=== PATIENT | male | born 1985 | race Caucasian/White ===

== ENCOUNTER 2017-11-10 12:57 | Emergency (ER) | payer SELFPAY ==
[~2017-11-10 12:57] MED LIST: CEPH500C24 PO; CYCL10TA29 PO; HYDR-4309 PO
--- NOTE | 2017-11-10 12:58 | ER Report ---
History and Physical Time Seen By MD: 12:58 HPI/ROS CHIEF COMPLAINT: Back pain HISTORY OF PRESENT ILLNESS: Patient is a 32-year-old male who states he was helping a friend move a refrigerator off the truck bed yesterday when he got his left foot caught in the tailgate. This caused him to twist landing with his right knee on the ground and pulling his right lower back. It is been trying to medicate with Tylenol and Motrin without significant relief. He has significant pain with movement better at rest. He denies any fevers or chills. Denies any saddle anesthesia. Denies any retention or incontinence of urine or stool. Complains of some right knee pain. Patient is able to ambulate with difficulty secondary to pain REVIEW OF SYSTEMS: Respiratory: No cough, no dyspnea. Cardiovascular: No chest pain, no palpitations. Gastrointestinal: No vomiting, no abdominal pain. Musculoskeletal: Right lower back pain Allergies: Coded Allergies: No Known Drug Allergies (Unverified , 08/07/15) Home Meds Active Scripts Methocarbamol (ROBAXIN) 500 Mg Tablet, 1500 MG PO TID for Muscle Relaxant, #30 TAB 0 Refills Prov:JOE NIEVES MD 11/10/17 Hydrocodone Bit/Acetaminophen (HYDROCODON-ACETAMINOPHEN 5-325) 1 Each Tablet, 1 EACH PO Q4-6H PRN for PAIN, #12 TAB 0 Refills TAKE ONE TABLET BY MOUTH EVERY 4-6 HOURS NEEDED FOR PAIN Prov:JOE NIEVES MD 11/10/17 Hydrocodone Bit/Acetaminophen (NORCO 5-325 TABLET) 1 Each Tablet, 1 EACH PO Q4- 6H PRN for PAIN, #20 TAB Prov:NEHA BOWMAN 08/07/15 Cyclobenzaprine Hcl (CYCLOBENZAPRINE HCL) 10 Mg Tablet, 5-10 MG PO TID PRN for MUSCLE SPASMS, #30 TAB Prov:NEHA BOWMAN 08/07/15 Past Medical/Surgical History Noncontributory towards his chief complaint Hx Smoking: Yes (1/2 ppd) Smoking Status: Current: Every Day Smoker Hx Substance Use Disorder: No Hx Alcohol Use: Yes (rare) Constitutional Vital Sign - Last 24 Hours 11/10/17 11/10/17 11/10/17 11/10/17 13:00 13:02 13:12 13:27 Temp 98.6 Pulse 74 73 68 Resp 20 B/P (MAP) 123/72 123/72 (89) Pulse Ox 96 98 99 O2 Delivery Room Air 11/10/17 11/10/17 11/10/17 11/10/17 13:30 13:42 13:57 14:02 Pulse 72 67 B/P (MAP) 114/71 (85) 113/71 (85) Pulse Ox 95 97 Physical Exam General appearance: alert no distress. Back: Thoracic spine has no spinal or paraspinal tenderness to palpation. Lumbar spine has no spinal tenderness moderateparaspinal tenderness on the right Gastroinal: Abdomen is soft, non tender, no masses.. Skin: No lesions and no rashes. Vascular: Normal capillary refill and pulses to feet. Neurological: Motor function: leg strength normal and symmetric for both legs Sensory function: normal for all leg dermatomes. Straight leg raise negative to 70 degrees. Reflexes normal bilaterally on legs. Musculoskeletal: Swelling to the right knee without erythema normal range of motion DIFFERENTIAL DIAGNOSIS: After history and physical exam differential diagnosis was considered for back pain including muscular strain, herniated disc, intra- abdominal and renal causes. He sprain, fracture, ligamentous injury Medical Decision Making EKG/Imaging Imaging X-ray knee negative for acute fracture, x-ray of lumbar spine negative for acute fracture ED Course/Re-evaluation ED Course X-rays negative for acute fracture or injury. Plan will be symptomatic treatment at home with follow-up with primary care provider Decision to Disposition Date: Nov 10, 2017 Decision to Disposition Time: 13:51 Depart Departure Latest Vital Signs Vital Signs Date Time Temp Pulse Resp B/P (MAP) Pulse Ox O2 Delivery O2 Flow Rate FiO2 11/10/17 14:02 113/71 (85) 11/10/17 13:57 67 97 11/10/17 13:00 98.6 20 Room Air Impression: Primary Impression: Low back strain Condition: Improved Disposition: HOME OR SELF-CARE New Scripts Methocarbamol (ROBAXIN) 500 Mg Tablet 1500 MG PO TID for Muscle Relaxant, #30 TAB 0 Refills Prov: OJE NIEVES MD 11/10/17 Hydrocodone Bit/Acetaminophen (HYDROCODON-ACETAMINOPHEN 5-325) 1 Each Tablet 1 EACH PO Q4-6H PRN for PAIN, #12 TAB 0 Refills TAKE ONE TABLET BY MOUTH EVERY 4-6 HOURS NEEDED FOR PAIN Prov: JOE NIEVES MD 11/10/17 Departure Forms: ER Transition Record, Medications Reconciliation, Off Work/School Form, School or Work Release?: Work Number of days to be released: 2 Patient Portal Information Patient Instructions: Acute Low Back Pain (ED) Problem Qualifiers Primary Impression: Low back strain Encounter type: initial encounter Qualified Codes: S39.012A - Strain of muscle, fascia and tendon of lower back, initial encounter JOE NIEVES MD Nov 10, 2017 12:58
[2017-11-10] MEDS ORDERED: KETOROLAC 60 MG/2 ML VIAL IM ONE (13:15)
[2017-11-10] MEDS ORDERED: ORPHENADRINE CITR 100 MG TABSR PO ONE (13:15)
[2017-11-10] MEDS ORDERED: LOR5/325 PO (13:47)
[2017-11-10] MEDS ORDERED: METH-542 PO (13:47)
[2017-11-10 14:02] VITALS: BP 113/71
--- NOTE | 2017-11-10 14:18 | RADIOLOGY IMAGING REPORT ---
[place] [facility] [place] Jamin Zimmer : 1985 MR: [id number] V: [id number] EXAM DATE: ORDERING PHYSICIAN: JOE NIEVES TECHNOLOGIST: Location: [facility] Patient: Jamin Zimmer : 1985 Visit/Account:[id number] Date of Sevice: 11/10/2017 LUMBAR SPINE 2 OR 3 VIEW Indication: Back pain., fall Comparison: None available FINDINGS: There are 5 lumbar type vertebral bodies. There is no acute osseous or acute alignment abnormality. There is mild diffuse multilevel degenerative disc space disease present. No spondylolisthesis is id entified. The vertebral body heights appear well-maintained. IMPRESSION: 1. No acute osseous or acute alignment abnormality of the lumbar spine. Report Dictated By: Dex Ugalde at 11/10/2017 2:14 PM Report E-Signed By: Dex Ugalde at 11/10/2017 2:15 PM WSN:[email or web address]
--- NOTE | 2017-11-10 14:22 | RADIOLOGY IMAGING REPORT ---
FACILITY: [facility] - [place] PATIENT NAME: Jamin Zimmer : 1985 MR: [id number] V: [id number] EXAM DATE: ORDERING PHYSICIAN: JOE NIEVES TECHNOLOGIST: Location: [facility] [place] Patient: Jamin Zimmer : 1985 Visit/Account:[id number] Date of Sevice: 11/10/2017 KNEE 3 VIEW RIGHT Indication: Pain after fall Comparison: None available Findings: No evidence of fracture, dislocation, or acute osseous abnormality of the right knee. There is a moderate-sized joint effusion. No evidence of joint effusion. There is no focal soft tissue abnormality. No evidence of radiopaque foreign body. IMPRESSION: 1. Moderate size joint effusion, no bony abnormalities identified. Report Dictated By: Dex Ugalde at 11/10/2017 2:15 PM Report E-Signed By: Dex Ugalde at 11/10/2017 2:16 PM WSN:[id number]
== END 2017-11-10 14:02 | disposition home or self-care (01) ==
LOC: ER 13:43
DX: S39.012A Strain of muscle, fascia and tendon of lower back, initial encounter (principal)
CPT/HCPCS: 72100; 73562; 96372; 99284; J1885

== ENCOUNTER 2017-11-26 13:32 | Emergency (ER) | payer SELFPAY ==
[~2017-11-26 13:32] MED LIST changes: -HYDR-4309 PO; +HYDR-653 PO; +LOR5/325 PO; +METH-542 PO
[2017-11-26] MEDS ORDERED: IBUP-1784 PO ×2 (13:42→13:43)
--- NOTE | 2017-11-26 13:52 | ER Report ---
History and Physical Time Seen By MD: 13:52 Hx. 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 This seen in the emergency department the day of the event, and had negative x-rays. Was given pain medications. States that the pain has worsened over the past 3 weeks. No changes in bowel or bladder. No lower extremity weakness. Does state that he has intermittent paresthesias down his right leg. States that the pain is so bad that he is unable to get out of bed in the morning. 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 No fever chills. Able to ambulate. Remainder of the 14 system rev: Yes (ESTELA QUINTANA MD) Allergies: Coded Allergies: No Known Drug Allergies (Unverified , 08/07/15) Home Meds Active Scripts Hydrocodone Bit/Acetaminophen (HYDROCODON-ACETAMINOPHEN 5-325) 1 Each Tablet, 1 EACH PO Q4-6H PRN for PAIN, #12 TAKE ONE TABLET BY MOUTH EVERY 4-6 HOURS NEEDED FOR PAIN Prov:JOSE PARRA Denise DO 11/26/17 Methocarbamol (ROBAXIN-750) 750 Mg Tablet, 1 TAB PO TID PRN for muscle spasm relief, #20 Prov:JOSE PARRA Denise DO 11/26/17 Prednisone 10 Mg Tab (PREDNISONE 10 MG TAB) 10 Mg Tablet, 10 MG PO QDAY PRN for reduce spinal inflammation, #20 2 tabs daily for 3 days 1 tab daily for 3 days Prov:JOSE PARRA DO 11/26/17 Reported Medications Ibuprofen (IBUPROFEN IB) 200 Mg Tablet, 1 TAB PO Q4-6H 11/26/17 Discontinued Scripts Methocarbamol (ROBAXIN) 500 Mg Tablet, 1500 MG PO TID for Muscle Relaxant, #30 TAB 0 Refills Prov:JOE NIEVES MD 11/10/17 Hydrocodone Bit/Acetaminophen (HYDROCODON-ACETAMINOPHEN 5-325) 1 Each Tablet, 1 EACH PO Q4-6H PRN for PAIN, #12 TAB 0 Refills TAKE ONE TABLET BY MOUTH EVERY 4-6 HOURS NEEDED FOR PAIN Prov:JOE NIEVES MD 11/10/17 Hydrocodone Bit/Acetaminophen (NORCO 5-325 TABLET) 1 Each Tablet, 1 EACH PO Q4- 6H PRN for PAIN, #20 TAB Prov: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 08/07/15 Reviewed Nurses Notes: Yes Old Medical Records Reviewed: Yes (ESTELA QUINTANA MD) Hx Smoking: Yes (1/2 ppd) Smoking Status: Current: Every Day Smoker Hx Substance Use Disorder: No Hx Alcohol Use: Yes (rare) (ESTELA QUINTANA MD) Constitutional Vital Sign - Last 24 Hours 11/26/17 11/26/17 11/26/17 11/26/17 13:37 13:38 14:00 14:02 Temp 98.0 Pulse 86 71 Resp 16 B/P (MAP) 130/74 130/74 (92) 121/69 (86) Pulse Ox 95 96 O2 Delivery Room Air 11/26/17 11/26/17 11/26/17 11/26/17 14:30 14:32 15:00 15:02 Pulse 69 73 B/P (MAP) 110/70 (83) 111/71 (84) Pulse Ox 95 94 11/26/17 11/26/17 11/26/17 11/26/17 15:07 15:30 15:37 16:00 Pulse 68 69 B/P (MAP) 108/73 (85) 115/75 (88) Pulse Ox 95 95 11/26/17 11/26/17 11/26/17 11/26/17 16:07 16:30 16:37 16:42 Pulse 66 69 68 B/P (MAP) 107/72 (84) Pulse Ox 94 94 94 11/26/17 11/26/17 11/26/17 11/26/17 16:57 17:00 17:12 17:27 Pulse 69 ? B/P (MAP) 108/73 (85) Pulse Ox 95 11/26/17 11/26/17 11/26/17 11/26/17 17:42 17:57 18:12 18:27 Pulse ? 65 66 Pulse Ox 94 93 11/26/17 11/26/17 11/26/17 11/26/17 18:32 18:47 19:02 19:17 Pulse 69 75 71 69 Pulse Ox 92 93 93 93 11/26/17 19:21 B/P (MAP) 110/72 (85) (JOSE PARRA DO) Physical Exam General Appearance: The patient is alert, has no immediate need for airway protection and no signs of toxicity. Eyes: Pupils equal and round no pallor or injection. ENT, Mouth: Mucous membranes are moist. Respiratory: There are no retractions, lungs are clear to auscultation. Cardiovascular: Regular rate and rhythm. Gastrointestinal: Abdomen is soft and non tender, no masses, bowel sounds normal. Neurological: sensation/strength grossly in tact. Skin: Warm and dry, no rashes. Musculoskeletal: Midline TTP at L4/5 Extremities are nontender, nonswollen and have full range of motion. DIFFERENTIAL DIAGNOSIS: After history and physical exam differential diagnosis was considered for back pain including but not limited to muscular pain, herniated disc, spine fracture, intra-abdominal causes and urinary tract infection. (ESTELA QUINTANA MD) Medical Decision Making EKG/Imaging Imaging Results: MRI of the lumbar spine with and without contrast was obtained. The results of the study are EXAMINATION: Lumbar spine MRI without IV contrast Lumbar spine MRI with IV contrast HISTORY: Fall 3 weeks ago. Lumbar spine pain, numbness. COMPARISON: Lumbar spine radiographs 11/10/2017 TECHNIQUE: Multi-planar, multi-sequence lumbar spine MRI was performed before and after IV contrast. CONTRAST: 15 mL of IV MultiHance FINDINGS: Alignment: Normal alignment. Vertebral body height is maintained. No evidence of fracture or subluxation. Vertebral marrow signal: Negative. Distal thoracic cord: Negative. Conus: negative, terminates at L1 Cauda equina: Negative. Paravertebral soft tissues: Negative. Visualized abdominal and pelvic structures: Negative. Enhancement pattern: Negative. Disc Spaces: Lower thoracic spine: Normal. L1-2: Mild disc space narrowing. No central canal or foraminal stenosis. L2-3: There is disc space narrowing with mild generalized disc bulging and a small right paracentral disc protrusion which mildly narrows the right lateral recess. This abuts but does not displace the adjacent right L3 nerve root. No central canal or foraminal stenosis. L3-4: Mild disc space narrowing. Mild broad-based posterior disc bulge, slightly eccentric to the right, with mild narrowing of the right lateral recess. This abuts but does not displace the adjacent right L4 nerve root. No central canal or foraminal stenosis. L4-5: Mild disc space narrowing. Mild broad-based posterior disc bulge. No central canal stenosis. There is mild inferior foraminal narrowing bilaterally. L5-S1: Normal. IMPRESSION: 1. No acute osseous findings along the lumbar spine. Normal alignment. 2. Mild multilevel spondylotic changes as described. The study was read by the radiologist. I viewed the images myself on the PACS system. (JOSE PARRA DO) ED Course/Re-evaluation ED Course Care was assumed at shift change with diagnostic MRI of the lumbar spine pending. Patient with continued severe back pain and sciatica down his right lower extremity. Patient was seen previously, had normal x-rays. The MRI was unremarkable except for multilevel degenerative disc disease. No acute findings. Patient be discharged home with conservative treatment plan of prednisone, Robaxin, and hydrocodone. Patient's placed on work restrictions for 5 days. He is advised to follow-up with primary care. He was given Dr. Wallace's information. He may need PT. He was also given spinal surgeon, Dr. Dot Monterroso's information. Decision to Disposition Date: Nov 26, 2017 Decision to Disposition Time: 19:00 (JOSE PARRA DO) Depart Departure Latest Vital Signs Vital Signs Date Time Temp Pulse Resp B/P (MAP) Pulse Ox O2 Delivery O2 Flow Rate FiO2 11/26/17 19:21 110/72 (85) 11/26/17 19:17 69 93 11/26/17 13:37 98.0 16 Room Air (JOSE PARRA DO) Impression: Primary Impression: Low back strain Additional Impression: Lumbar degenerative disc disease Condition: Improved Disposition: HOME OR SELF-CARE Referrals: DOT MONTERROSO MD, FARRUKH MD New Scripts Hydrocodone Bit/Acetaminophen (HYDROCODON-ACETAMINOPHEN 5-325) 1 Each Tablet 1 EACH PO Q4-6H PRN for PAIN, #12 TAKE ONE TABLET BY MOUTH EVERY 4-6 HOURS NEEDED FOR PAIN Prov: JOSE PARRA DO 11/26/17 Methocarbamol (ROBAXIN-750) 750 Mg Tablet 1 TAB PO TID PRN for muscle spasm relief, #20 Prov: JOSE PARRA DO 11/26/17 Prednisone 10 Mg Tab (PREDNISONE 10 MG TAB) 10 Mg Tablet 10 MG PO QDAY PRN for reduce spinal inflammation, #20 2 tabs daily for 3 days 1 tab daily for 3 days Prov: JOSE PARRA DO 11/26/17 Patient Instructions: Low Back Strain (ED) Additional Instructions: Take ibuprofen 200 mg 4 tablets 3 times a day with food in your stomach Take medications after work and at bedtime Avoid medications that make you drowsy in the morning before going to work. Follow-up with primary care as needed or Dr. Dot Monterroso , spinal surgeon Problem Qualifiers Primary Impression: Low back strain Encounter type: subsequent encounter Qualified Codes: S39.012D - Strain of muscle, fascia and tendon of lower back, subsequent encounter ESTELA QUINTANA MD Nov 26, 2017 13:52 JOSE PARRA DO Nov 26, 2017 19:09
[2017-11-26] MEDS ORDERED: MORPHINE 4 MG/ML SDV IVP ONE (15:25)
[2017-11-26] MEDS ORDERED: DEXAMETHASONE SOD PHOS 10MG/ML IVP ONE (15:25)
--- NOTE | 2017-11-26 16:39 | RADIOLOGY IMAGING REPORT ---
FACILITY: [facility] PATIENT NAME: Jamin Zimmer : 1985 MR: [id number] V: [id number] EXAM DATE: ORDERING PHYSICIAN: ESTELA QUINTANA TECHNOLOGIST: Location: [facility] Patient: Jamin Zimmer : 1985 Visit/Account:[id number] Date of Sevice: 11/26/2017 Technique: ORBITS FOREIGN BODY 1 VIEW HISTORY: mri Comparison studies: None FINDINGS: No radiodense foreign body. Soft tissues are unremarkable. No acute fracture. The visualize d paranasal sinuses and mastoid air cells are clear. IMPRESSION: 1. No radiodense foreign body. Report Dictated By: Naldo Carey DO at 11/26/2017 4:34 PM Report E-Signed By: Naldo Carey DO at 11/26/2017 4:35 PM WSN:[id number]
[2017-11-26] MEDS ORDERED: GADOBENATE 529MG/1ML 15ML VIAL IVP ONE (17:21)
--- NOTE | 2017-11-26 18:22 | RADIOLOGY IMAGING REPORT ---
FACILITY: [facility] PATIENT NAME: Jamin Zimmer : 1985 MR: [id number] V: [id number] EXAM DATE: ORDERING PHYSICIAN: ESTELA QUINTANA TECHNOLOGIST: Location: [facility] Patient: Jamin Zimmer : 1985 Visit/Account:[id number] Date of Sevice: 11/26/2017 EXAMINATION: Lumbar spine MRI without IV contrast Lumbar spine MRI with IV contrast HISTORY: Fall 3 weeks ago. Lumbar spine pain, numbness. COMPARISON: Lumbar spine radiographs 11/10/2017 TECHNIQUE: Multi-planar, multi-sequence lumbar spine MRI was performed before and after IV contrast. CONTRAST: 15 mL of IV MultiHance FINDINGS: Alignment: Normal alignment. Vertebral body height is maintained. No evidence of fracture or subluxat ion. Vertebral marrow signal: Negative. Distal thoracic cord: Negative. Conus: negative, terminates at L1 Cauda equina: Negative. Paravertebral soft tissues: Negative. Visualized abdominal and pelvic structures: Negative. Enhancement pattern: Negative. Disc Spaces: Lower thoracic spine: Normal. L1-2: Mild disc space narrowing. No central canal or foraminal stenosis. L2-3: There is disc space narrowing with mild generalized disc bulging and a small right paracentral disc protrusion which mildly narrows the right lateral recess. This abuts but does not displace the a djacent right L3 nerve root. No central canal or foraminal stenosis. L3-4: Mild disc space narrowing. Mild broad-based posterior disc bulge, slightly eccentric to the rig ht, with mild narrowing of the right lateral recess. This abuts but does not displace the adjacent ri ght L4 nerve root. No central canal or foraminal stenosis. L4-5: Mild disc space narrowing. Mild broad-based posterior disc bulge. No central canal stenosis. Th ere is mild inferior foraminal narrowing bilaterally. L5-S1: Normal. IMPRESSION: 1. No acute osseous findings along the lumbar spine. Normal alignment. 2. Mild multilevel spondylotic changes as described. Report Dictated By: Buzz Espinosa MD at 11/26/2017 6:03 PM Report E-Signed By: Buzz Espinosa MD at 11/26/2017 6:18 PM WSN:[id number]
[2017-11-26] MEDS ORDERED: METH-543 PO (19:07)
[2017-11-26] MEDS ORDERED: PRED-1 PO (19:07)
[2017-11-26] MEDS ORDERED: LOR5/325 PO (19:07)
[2017-11-26 19:21] VITALS: BP 110/72
== END 2017-11-26 19:20 | disposition home or self-care (01) ==
LOC: ER 13:57
DX: S39.012D Strain of muscle, fascia and tendon of lower back, subsequent encounter (principal); M47.9 Spondylosis, unspecified
CPT/HCPCS: 70030; 72158; 96374; 96375; 99284; A9577; J1100; J2270

== ENCOUNTER 2017-12-13 23:52 | Emergency (ER) | payer SELFPAY ==
[~2017-12-13 23:52] MED LIST changes: +IBUP-1784 PO; +METH-543 PO; +PRED-1 PO
[2017-12-14] MEDS ORDERED: APAP/HYDROCODONE 325/5 TAB PO ONE (00:50)
[2017-12-14] MEDS ORDERED: DIAZEPAM 5 MG TAB PO ONE (00:50)
--- NOTE | 2017-12-14 01:03 | ER Report ---
History and Physical Time Seen By MD: 00:05 Hx. of Stated Complaint: pt threw out back. every little movement hurts HPI/ROS CHIEF COMPLAINT: Back pain, cough HISTORY OF PRESENT ILLNESS: 32-year-old male presents ambulatory to the ER complaining of severe lower back pain. Patient's had an upper respiratory infection. His been suffering a severe cough. He's wrenched his back by coughing severely. Patient was recently seen here in the ER for back pain. She notes no radiation to his legs. He denies incontinence. She notes no urinary tract symptoms. Patient describes 08/15 pain in his back, aggravated by movement. He denies any alleviating symptoms. REVIEW OF SYSTEMS: Respiratory: Above Cardiovascular: No chest pain, no palpitations. Gastrointestinal: No vomiting, no abdominal pain. Musculoskeletal: As above Allergies: Coded Allergies: No Known Drug Allergies (Unverified , 08/07/15) Home Meds Active Scripts Azithromycin 250 Mg Tab (AZITHROMYCIN 250 MG TAB) 250 Mg Tablet, 0 PO QDAY for infection, #6 TAB TAKE 2 TABLETS ON DAY 1 AND 1 TABLET ON DAYS 2-5 Prov:JOSE PARRA DO 12/14/17 Methocarbamol (ROBAXIN-750) 750 Mg Tablet, 1 TAB PO TID PRN for muscle spasm relief, #15 Prov:JOSE PARRA DO 12/14/17 Reported Medications Ibuprofen (IBUPROFEN IB) 200 Mg Tablet, 1 TAB PO Q4-6H 11/26/17 Reviewed Nurses Notes: Yes Old Medical Records Reviewed: Yes Hx Smoking: Yes (1/2 ppd) Smoking Status: Current: Every Day Smoker Hx Substance Use Disorder: No Hx Alcohol Use: Yes (rare) Constitutional Physical Exam General Appearance: The patient is alert, has no immediate need for airway protection and no current signs of toxicity. HEENT: Pupils equal and round no injection. TMs normal, oropharynx with mild erythema Respiratory: Chest is non tender, lungs are clear to auscultation. No wheezing or rails Cardiac: regular rate and rhythm Gastrointestinal: Abdomen is soft and non tender, no masses, bowel sounds normal. Musculoskeletal: Neck: Neck is supple and non tender. Back:, Palpation of the lumbar spine, paraspinous muscles reveals moderate tenderness. There is no tenderness in the midline. There is no tenderness of the SI joints. There is negative straight leg raise bilaterally Extremities have full range of motion and are non tender. Skin: No rashes or lesions. DIFFERENTIAL DIAGNOSIS: After history and physical exam differential diagnosis was considered for back pain including but not limited to muscular pain, herniated disc, spine fracture, intra-abdominal causes and urinary tract infection. Medical Decision Making ED Course/Re-evaluation ED Course Patient was admitted to an examination room. H&P was done. The differential diagnoses was considered. On conical examination. Patient has acute lumbar spine. He is a nonfocal neurologic examination. Patient be treated for lumbar strain. He'll also be treated for bronchitis. Patient advised to follow-up with primary care if unimproved in 3-5 days. Decision to Disposition Date: Dec 14, 2017 Decision to Disposition Time: 01:02 Depart Departure Latest Vital Signs Impression: Primary Impression: Low back strain Additional Impressions: Bronchitis Lumbar degenerative disc disease Condition: Improved Disposition: HOME OR SELF-CARE New Scripts Azithromycin 250 Mg Tab (AZITHROMYCIN 250 MG TAB) 250 Mg Tablet 0 PO QDAY for infection, #6 TAB TAKE 2 TABLETS ON DAY 1 AND 1 TABLET ON DAYS 2-5 Prov: JOSE PARRA DO 12/14/17 Methocarbamol (ROBAXIN-750) 750 Mg Tablet 1 TAB PO TID PRN for muscle spasm relief, #15 Prov: JOSE PARRA DO 12/14/17 Departure Forms: Medications Reconciliation, Patient Portal Information, ER Transition Record Patient Instructions: Acute Bronchitis (ED), Low Back Strain (ED) Additional Instructions: Take ibuprofen 200 mg 3-4 tablets 3 times a day with food Apply heating pad to your back in the affected area Follow-up with primary care if unimproved in 3-5 days. Problem Qualifiers Primary Impression: Low back strain Encounter type: initial encounter Qualified Codes: S39.012A - Strain of muscle, fascia and tendon of lower back, initial encounter JOSE PARRA DO Dec 14, 2017 01:02
[2017-12-14] MEDS ORDERED: AZIT-18 PO (01:06)
[2017-12-14] MEDS ORDERED: METH-543 PO (01:06)
[2017-12-14] MEDS ORDERED: ACET/HYDROC 5/325MG TH ER ONLY 2 TAB/BOTTLE PO ONE (01:10)
[2017-12-14] MEDS ORDERED: AZITHROMYCIN 250 MG TAB PO ONE (01:10)
[2017-12-14 01:30] VITALS: BP 115/74
== END 2017-12-14 01:40 | disposition home or self-care (01) ==
LOC: ER 23:59
DX: S39.012A Strain of muscle, fascia and tendon of lower back, initial encounter (principal); J40 Bronchitis, not specified as acute or chronic; M51.36 Other intervertebral disc degeneration, lumbar region
CPT/HCPCS: 99283; Q0144